=== PATIENT | female | born 1990 | race Caucasian/White ===

== ENCOUNTER 2021-07-09 03:43 | Inpatient (IN) | payer SELFPAY ==
[2021-07-09] MEDS ORDERED: Morphine 4 MG/ML VIAL ONE (04:12)
[2021-07-09] MEDS ORDERED: Metoclopramide HCl 10 MG/2 ML VIAL ONE (04:24)
[2021-07-09] MEDS ORDERED: cefTRIAXone\\ROCEPHIN 2 GM VIAL ONE (09:24)
[2021-07-09] MEDS ORDERED: Lidocaine 1% PF 5 ML VIAL ONE (09:29)
[2021-07-09] MEDS ORDERED: Promethazine HCl 25 MG/ML VIAL ONE (11:07)
[2021-07-10 13:34] LABS: Chlamydia by PCR Not Detected (NotDetected); GC by PCR Not Detected (NotDetected)
== END 2021-07-09 12:14 | disposition home or self-care (01) | DRG 759 ==
LOC: CSHERS 03:43 → CSHERHOLD 12:13
PROVIDERS: ADMIT Internal Medicine; ATTEND Internal Medicine
DX: N70.11 Chronic salpingitis (principal); J45.909 Unspecified asthma, uncomplicated; F32.A Depression, unspecified; Z91.018 Allergy to other foods; Z88.7 Allergy status to serum and vaccine; Z87.891 Personal history of nicotine dependence; Z90.89 Acquired absence of other organs; Z90.49 Acquired absence of other specified parts of digestive tract
CPT/HCPCS: 76856; 87491; 87591; 96372; 96374; 96375; J0696; J2270; J2550; J2765; J3490